=== PATIENT | male | born 1995 | race Two or more races ===

== ENCOUNTER 2022-07-26 17:52 | Emergency (ER) | payer OTHER ==
[~2022-07-26] VITALS: Ht 190.5 cm; Wt 77.8 kg
[2022-07-26] MEDS ORDERED: IBUP800T26 PO (21:12)
[2022-07-26] MEDS ORDERED: CYCL-837 PO (21:12)
[2022-07-26] MEDS ORDERED: KETOROLAC TROMETH 30 MG/ML 1ML VIAL IM ONE (21:15)
[2022-07-26 21:41] VITALS: BP 133/89
== END 2022-07-26 21:55 | disposition home or self-care (01) ==
LOC: ER 17:52
DX: S40.012A Contusion of left shoulder, initial encounter (principal); M54.2 Cervicalgia; M54.6 Pain in thoracic spine; V43.52XA Car driver injured in collision with other type car in traffic accident, initial encounter; Y93.89 Activity, other specified; Y92.488 Other paved roadways as the place of occurrence of the external cause; Y99.8 Other external cause status
CPT/HCPCS: 70450; 72040; 72070; 73030; 96372; 99284; J1885